=== PATIENT | female | born 1955 | race Two or more races ===

== ENCOUNTER → 2024-11-25 | Emergency (ER) | payer OTHER ==
[~2024-11-25] VITALS: Ht 157.5 cm; Wt 93.4 kg
[~2024-11-25] MED LIST: ATACAND16 MG PO; CRESTOR40 MG PO; FAMOTIDINE/PF 20 MG/2 ML VIAL IV PUSH STA; FAMOTIDINE/PF 20 MG/2 ML VIAL ONE; GLIMEPIRIDE2 M1 PO; HYOSCYAMINE SULFATE 0.125 MG TAB.SUBL ONE; HYOSCYAMINE SULFATE 0.125 MG TAB.SUBL SL STA; JANUMET 50-5001 EACH PO; ONDANSETRON HCL 2 MG/ML VIAL IV STA; ONDANSETRON HCL 2 MG/ML VIAL ONE; TOPROL XL25 M1 PO
[2024-11-25 19:33] LABS: BASO % 0.6 % (0.1-1.2); EOS # 0.08 (0.04-0.54); EOS % 0.6 % (0.7-7.0); LYMPH # 2.32 (1.18-3.74); LYMPH % 18.4 % (19.3-53.1); MEAN PLATELET VOLUME 10.30 fl (9.4-12.4); MONO # 2.33 (0.24-0.82); NEUT # 7.69 (1.56-6.13); NEUT % 61.0 % (34.0-71.1); RED CELL DISTRIBUTION WIDTH 19.4 % (11.6-14.4)
[2024-11-25 19:34] LABS: MONO % 18.4 % (4.7-12.5)
[2024-11-25 20:00] LABS: ALT/SGPT 18.0 U/L (12-78); AST/SGOT 23.0 U/L (15-37); BILIRUBIN TOTAL 0.78 mg/dL (0.3-1.2); BUN CREA RATIO 20.0 (7.0-25.0); CREATININE SERUM 1.11 mg/dL (0.55-1.02); GFR 48.88; GLOBULINA 3.7 G/DL (2.4-3.5); GLUCOSE FASTING 155.0 mg/dL (65-100); OSMOLALITY SERUM 282.0 MOSM/KG (275-295)
[2024-11-25 20:54] LABS: URINE APPEARANCE Clear; URINE BILIRRUBIN Negative (NEGATIVE); URINE BLOOD Negative; URINE COLOR Yellow; URINE GLUCOSE Negative (NEGATIVE); URINE KETONE Negative (NEGATIVE); URINE LEUKOCYTE Trace; URINE NITRATE Negative; URINE PROTEIN Negative (NEGATIVE); URINE UROBILINOGEN 1.0 E.U./dl
[2024-11-25 20:58] LABS: URINE BACTERIA 188.3 uL (0.0-1933); URINE EPITHELIAL CELLS 6.7 uL (0.0-38.8); URINE RBC 2.4 uL (0.0-20.8); URINE WBC 8.6 uL (0.0-23.2)
[2024-11-25 21:06] LABS: URINE CAST 0.14 uL (0.0-1.40)
== END | disposition left against medical advice (07) ==
LOC: ER 17:30
PROVIDERS: General Practice
DX: R10.9 Unspecified abdominal pain (principal); Z88.7 Allergy status to serum and vaccine; Z91.013 Allergy to seafood
CPT/HCPCS: 36415; 74176; 96365; 99284; J2405; J3490